=== PATIENT | male | born 1955 | race Caucasian/White ===

== ENCOUNTER 2017-05-02 09:40 | Inpatient (IN) | payer OTHER ==
[~2017-05-02] VITALS: Ht 185.4 cm; Wt 95.3 kg
--- NOTE | 2017-05-02 12:15 | NUR ---
Pre-Admission Assessment Pt is in stable condition, with stable VS and is A/O x4, calm and cooperative, able to make his needs known. Pt is able to consent to treatment and signs all appropriate papers. Pt provides curriculum writer with essential information and is cleared to be admitted to [facility].
[2017-05-02] MEDS ORDERED: ONDANSETRON 4 MG/2 ML VIAL IM PRN (12:30)
[2017-05-02] MEDS ORDERED: BUPRENORPHINE HCL 2 MG TAB.SUBL SL PRN (12:30)
[2017-05-02] MEDS ORDERED: IBUPROFEN 600 MG TABLET PO PRN (12:30)
[2017-05-02] MEDS ORDERED: MAGNESIUM HYDROXIDE 30 ML LIQUID UDC PO PRN (12:30)
[2017-05-02] MEDS ORDERED: LORAZEPAM 1 MG TABLET PO PRN ×2 (12:30)
[2017-05-02] MEDS ORDERED: LOPERAMIDE HCL 2 MG CAPSULE PO PRN (12:30)
[2017-05-02] MEDS ORDERED: ACETAMINOPHEN 325 MG TABLET PO PRN (12:30)
[2017-05-02] MEDS ORDERED: LORAZEPAM 2 MG/1 ML VIAL IM PRN (12:30)
[2017-05-02] MEDS ORDERED: diphenhydrAMINE 50 MG CAPSULE PO PRN (12:30)
[2017-05-02] MEDS ORDERED: MIRALAX 17 GM POWD.PACK PO PRN (12:30)
[2017-05-02] MEDS ORDERED: MAG HYDROX/AL HYDROX/SIMETH 30 ML LIQUID UDC PO PRN (12:30)
[2017-05-02] MEDS ORDERED: ALPR1TAB7 PO (12:33)
[2017-05-02] MEDS ORDERED: VALS160T2 PO (12:33)
[2017-05-02] MEDS ORDERED: ALBU18HF2 INH (12:33)
[2017-05-02 13:25] VITALS: BP 136/89
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
[2017-05-02 14:30] VITALS: BP 91/66
--- NOTE | 2017-05-02 15:11 | NUR ---
MD notification Facilities And Grounds Director notified Dr. Thompson of pt's reported use of 740mg of Aspirin daily. Facilities And Grounds Director also notified MD of pt's passive SI and an evaluation by Rosemarie, therapist for suicidal ideation, see her note and sports book writer's admission note. Will continue to monitor, support and encourage according to plan of care.
[2017-05-02 15:25] LABS: *AMPHETAMINE, URINE NEGATIVE (NEGATIVE); *BARBITURATE, URINE NEGATIVE (NEGATIVE); *CANNABINOID, URINE POSITIVE (NEGATIVE); *COCCAINE, URINE NEGATIVE (NEGATIVE); *OPIATE, URINE POSITIVE (NEGATIVE); *PHENCYCLIDINE SCREEN,URINE NEGATIVE (NEGATIVE)
[2017-05-02 16:25] LABS: BASOPHILS % (AUTO) 0.5 % (0.0-2.0); EOSINOPHILS # (AUTO) 0.2 K/uL (0.0-0.7); EOSINOPHILS % (AUTO) 2.4 % (0.0-7.0); HEMOGLOBIN 11.5 G/DL (14.0-18.0); LYMPHOCYTES # (AUTO) 1.5 K/UL (0.8-4.8); LYMPHOCYTES % (AUTO) 22.7 % (20.5-51.5); MEAN CORPUSCULAR HEMOGLOBIN 31.8 UUG (27.0-31.0); MEAN CORPUSCULAR HGB CONC 34 g/dL (32.0-37.0); MEAN CORPUSCULAR VOLUME 94.2 FL (82.0-92.0); MONOCYTES # (AUTO) 0.6 K/UL (0.1-1.30); NEUTROPHILS # (AUTO) 4.4 K/UL (1.8-8.9); NEUTROPHILS % (AUTO) 65.4 % (38.5-71.5); PLATELET COUNT (AUTO) 264 K/UL (150-450); RED BLOOD CELL COUNT(AUTO) 3.61 MIL/UL (4.7-6.1); WHITE BLOOD COUNT (AUTO) 6.7 K/UL (4.0-11.2)
[2017-05-02 16:30] VITALS: BP 91/66
[2017-05-02 16:39] LABS: ETHANOL < 3 MG/DL (0-0)
[2017-05-02 16:56] LABS: ALANINE AMINOTRANSFERASE 20 U/L (16-63); ALKALINE PHOSPHATASE 64 U/L (50-136); ASPARTATE AMINOTRANSFERASE 17 U/L (15-37); BILIRUBIN,TOTAL 0.4 mg/dL (0.2-1.0); CARBON DIOXIDE 26 mmol/L (21-32); CHLORIDE 100 mmol/L (98-107); CHOLESTEROL 173 mg/dL (<200); CREATININE 1.2 mg/dL (0.6-1.3); GLUCOSE 77 mg/dL (74-106); HDL CHOLESTEROL 41 mg/dL (40-60); MAGNESIUM 2.1 mg/dL (1.8-2.4); POTASSIUM 3.9 mmol/L (3.5-5.1); TOTAL PROTEIN, SERUM 6.1 g/dL (6.4-8.2); TRIGLYCERIDES 175 MG/DL (30-150); UREA NITROGEN, BLOOD 18 mg/dL (7-18)
[2017-05-02 17:05] LABS: THYROID STIMULATING HORMONE 0.435 mIU/mL (0.358-3.740)
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
[2017-05-02 20:00] VITALS: BP 90/59
[2017-05-02] MEDS: METHOCARBAMOL 750 MG TABLET PO PRN (20:04)
--- NOTE | 2017-05-02 20:04 | NUR ---
PRN ROBAXIN Pt complains of body aches 02/15. PRN Robaxin administered as ordered. Breathing even and unlabored. Safety measures in place. Will monitor effectiveness.
[2017-05-02] MEDS: VALSARTAN 160MG PO SCH (21:00)
[2017-05-02] MEDS ORDERED: LORAZEPAM 1 MG TABLET PO SCH (21:00)
--- NOTE | 2017-05-02 21:04 | NUR ---
PRN ROBAXIN REASSESSMENT PRN medication effective. Pt lying in bed with eyes closed noted to be asleep. No facial grimacing noted. Breathing even and unlabored. Safety measures in place. Will monitor.
--- NOTE | 2017-05-03 | NUR ---
VITALS REFUSED, COWS/CIWA DEFERRED 0000 vitals refused. Pt stated " I just want to get some sleep." COWS/CIWA deferred, pt lying in bed with eyes closed noted to be asleep. Respirations 16. Breathing even and unlabored. Safety measures in place. Will continue to monitor.
[2017-05-03] MEDS: CLONIDINE HCL 0.1 MG TABLET PO PRN (01:19)
--- NOTE | 2017-05-03 01:19 | NUR ---
PRN ATIVAN,CLONIDINE, BENADRYL Pt complains of anxiety, agitation, chills and inability to sleep. PRN Ativan, Clonidine, and Benadryl administered as ordered. COWS:8, CIWA:6. Breathing even and unlabored, safety measures in place. Will monitor effectiveness of medications.
--- NOTE | 2017-05-03 02:19 | NUR ---
PRN REASSESSMENT PRN Medications effective. Pt is lying in bed with eyes closed noted to be asleep. No facial grimacing. Breathing is even and unlabored, safety measures in place. Will continue to monitor.
--- NOTE | 2017-05-03 04:00 | NUR ---
VITALS REFUSED, COWS/CIWA DEFERRED 0400 vitals refused. COWS/CIWA deferred, pt lying in bed with eyes closed noted to be asleep. Respirations 16. Breathing even and unlabored. Safety measures in place. Will continue to monitor.
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
[2017-05-03 08:02] VITALS: BP 123/93
[2017-05-03] MEDS: ASPIRIN 81 MG TAB.CHEW PO SCH (08:10)
[2017-05-03] MEDS: LORAZEPAM 1 MG TABLET PO SCH ×4 (08:11→21:02)
[2017-05-03] MEDS: MULTIVITAMINS,THERAPEUTIC TABLET PO SCH (08:11)
[2017-05-03] MEDS: BUPRENORPHINE HCL 2 MG TAB.SUBL SL SCH ×4 (08:11→21:03)
[2017-05-03] MEDS: VALSARTAN 160MG PO SCH ×2 (08:13→21:03)
[2017-05-03] MEDS ORDERED: PATIENT MAY USE OWN MED- MD OK PO SCH (09:00)
[2017-05-03] MEDS ORDERED: TUBERCULIN,PURIF.PROT.DERIV. 5 TU/0.1 ML TEST ID ONE (09:00)
[2017-05-03 12:15] VITALS: BP 111/64
[2017-05-03] MEDS: DICYCLOMINE HCL 20 MG TABLET PO PRN ×2 (13:13→21:03)
[2017-05-03] MEDS: LOPERAMIDE HCL 2 MG CAPSULE PO PRN (13:13)
--- NOTE | 2017-05-03 13:13 | NUR ---
PRN Administration Pt complain of stomach cramps and multiple episodes of loose stools. Neurology Teacher administered Bentyl and Imodium for relief of symptoms. Will continue to monitor, support and encourage according to plan of care.
--- NOTE | 2017-05-03 14:15 | NUR ---
PRN Re-assessment Pt endorses relief from both cramps and diarrhea. Stating, " feeling much better, thanks." No episodes of diarrhea noted since PRN administered. Will continue to monitor, support and encourage according to plan of care.
[2017-05-03] MEDS ORDERED: KETOROLAC TROMETHAMINE 30 MG INJ IM PRN (14:30)
[2017-05-03 16:43] VITALS: BP 141/95
[2017-05-03] MEDS: buPROPion 100 MG TABLET PO SCH (16:48)
[2017-05-03] MEDS: FLUTICASONE PROP NASAL SPRAY 16 GM BOTTLE NS SCH (18:08)
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
[2017-05-03 20:00] VITALS: BP 127/67
[2017-05-03] MEDS: GABAPENTIN 300 MG CAPSULE PO SCH (21:03)
--- NOTE | 2017-05-03 21:03 | NUR ---
PRN BENTYL/SEROQUEL Pt complains of abdominal cramps and inability to sleep. PRN Bentyl and Seroquel administered as ordered. Breathing is even and unlabored, safety measures in place. Will monitor effectiveness.
[2017-05-03] MEDS: QUETIAPINE FUMARATE 25 MG TABLET PO PRN (21:04)
--- NOTE | 2017-05-03 22:03 | NUR ---
PRN BENTYL/SEROQUEL REASSESSMENT PRN medications effective. Pt is lying in bed with eyes closed noted to be asleep. No facial grimacing noted. Breathing is even and unlabored, safety measures in place. Will monitor.
--- NOTE | 2017-05-04 | NUR ---
VITALS REFUSED/COWS,CIWA DEFERRED 0000 vitals were refused by pt at beginning of shift. Pt stated "I not want to be bothered or woken up for vitals signs" Risks/benefits explained, pt still refused. COWS/CIWA deferred d/t pt lying in bed with eyes closed noted to be asleep. Respirations 16, breathing is even and unlabored. Safety measures in place. Will monitor.
[2017-05-04] MEDS ORDERED: FLUN25SP BNOSTRILS (00:45)
[2017-05-04] MEDS ORDERED: CARB15DR OP (00:45)
[2017-05-04] MEDS ORDERED: [UNRECOGNIZED DRUG - CODE] PO (00:45)
[2017-05-04] MEDS ORDERED: ALBU18HF2 IH (00:45)
--- NOTE | 2017-05-04 04:00 | NUR ---
VITALS REFUSED/COWS and CIWA DEFERRED 0400 vitals were refused by pt at beginning of shift. COWS/CIWA deferred d/t pt lying in bed with eyes closed noted to be asleep. Respirations 16, breathing is even and unlabored. Safety measures in place. Will continue to monitor.
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
--- NOTE | 2017-05-04 07:30 | NUR ---
START OF SHIFT Pt 61 y/o male admitted for opiate dependence. Pt received in room on bed watching television. Pt alert and oriented to name, place, and time. Perrla. Skin warm and dry to touch. Respirations even and unlabored. Pt appears slightly irritable and states he feels anxious. It was reported that pt slept for 8 hours last night. Bed on lowest position with side rails x2 up for safety. Call light within reach. No distress noted at this time.
[2017-05-04 08:16] VITALS: BP 114/76
[2017-05-04] MEDS: ASPIRIN 81 MG TAB.CHEW PO SCH (08:53)
[2017-05-04] MEDS: buPROPion 100 MG TABLET PO SCH ×2 (08:53→17:32)
[2017-05-04] MEDS: GABAPENTIN 300 MG CAPSULE PO SCH ×2 (08:53→20:41)
[2017-05-04] MEDS: LORAZEPAM 1 MG TABLET PO SCH ×3 (08:53→20:41)
[2017-05-04] MEDS: MULTIVITAMINS,THERAPEUTIC TABLET PO SCH (08:53)
[2017-05-04] MEDS: FLUTICASONE PROP NASAL SPRAY 16 GM BOTTLE NS SCH (08:54)
[2017-05-04] MEDS: BUPRENORPHINE HCL 2 MG TAB.SUBL SL SCH ×3 (08:54→20:40)
[2017-05-04] MEDS: VALSARTAN 160MG PO SCH ×2 (09:44→21:42)
[2017-05-04 12:00] VITALS: BP 121/94
[2017-05-04] MEDS: METHOCARBAMOL 750 MG TABLET PO PRN (14:49)
--- NOTE | 2017-05-04 14:49 | NUR ---
PRN Pt with with c/o body aches 06/18. robaxin po prn per MD order given and tolerated well.
--- NOTE | 2017-05-04 15:59 | NUR ---
FAM GARCIA Pt observed on bed in room with eyes closed resting, but easily arousable to name. no distress noted at this time.
[2017-05-04] MEDS: DICYCLOMINE HCL 20 MG TABLET PO PRN (17:32)
[2017-05-04] MEDS: CLONIDINE HCL 0.1 MG TABLET PO PRN (17:33)
--- NOTE | 2017-05-04 17:37 | NUR ---
PRN pt states had stomach cramps. Bentyl po prn per MD order given and tolerated well.
--- NOTE | 2017-05-04 17:37 | NUR ---
PRN Pt states feels anxious. Catapres po prn per MD order given and tolerated well.
[2017-05-04 17:39] VITALS: BP 145/89
--- NOTE | 2017-05-04 18:26 | NUR ---
END OF SHIFT Pt 61 y/o male admitted for opiate dependence. Pt alert and oriented to name, place, and time. Perrla. Skin warm and dry to touch. Respirations even and unlabored. Pt with periods of anxiety this morning. Pt with bilateral hand tremors noted slightly. Pt mostly isolative to room throughout the day, but did attend group activity. Pt was seen by MD. Pt medication compliant and tolerated well. Bed on lowest position with side rails x2 up for safety. Call light within reach. No distress noted at this time.
[2017-05-04 20:00] VITALS: BP 110/80
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
[2017-05-04] MEDS: BACLOFEN 10 MG TABLET PO SCH (20:41)
[2017-05-04] MEDS: QUETIAPINE FUMARATE 25 MG TABLET PO PRN (20:41)
--- NOTE | 2017-05-04 20:41 | NUR ---
PRN Administration Pt requested aid to help him sleep. Seroquel 50mg PRN administered. Safety measures in place. Will continue to monitor.
[2017-05-04] MEDS: CLONIDINE HCL 0.1 MG TABLET PO SCH (21:00)
--- NOTE | 2017-05-04 21:00 | NUR ---
Medication Refusal Pt refused schedule Valsartan 160mg and Clonidine 0.1mg. Risks/benefits explained - pt continues to refuse. BP 110/80, pulse 68, resp 16, SpO2 96% room air and temp 98.2, no reports of pain 0/10. Safety measures in place. Will continue to monitor.
--- NOTE | 2017-05-04 21:41 | NUR ---
PRN Reassessment Upon reassessment, pt is sleeping, no s/s of acute distress noted, respirations even/unlabored. Safety measures in place. Will continue to monitor.
--- NOTE | 2017-05-05 | NUR ---
Pt refused to be woken up for 0000 Vital Signs COWS/CIWA Deferred d/t pt sleeping to assess while pt is awake as ordered. Respirations even/unlabored, no s/s of acute distress noted, respirations even/unlabored. Safety measures in place, will continue to monitor.
--- NOTE | 2017-05-05 04:00 | NUR ---
Pt refused to be woken up for 0400 Vital Signs COWS/CIWA Deferred d/t pt sleeping to assess while pt is awake as ordered. Respirations even/unlabored, no s/s of acute distress noted, respirations even/unlabored. Safety measures in place, will continue to monitor.
[2017-05-05 06:06] LABS: HEPATITIS B SURFACE AG Negative (Negative)
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
--- NOTE | 2017-05-05 07:30 | NUR ---
START OF SHIFT Pt 61 y/o male admitted for opiate dependence. Pt received in room awake on bed watching television. Pt alert and oriented to name, place, and time. Perrla. Skin warm and dry to touch. Respirations even and unlabored. Bilateral hand tremors noted slightly. Pt stated he slept well last night. It was reported that pt slept for 8 hours last night. Bed on lowest position with side rails x2 up for safety. Call light within reach. No distress noted at this time.
[2017-05-05 08:20] VITALS: BP 130/97
[2017-05-05] MEDS: MULTIVITAMINS,THERAPEUTIC TABLET PO SCH (08:22)
[2017-05-05] MEDS: LORAZEPAM 1 MG TABLET PO SCH ×4 (08:23→20:48)
[2017-05-05] MEDS: CLONIDINE HCL 0.1 MG TABLET PO SCH ×2 (08:23→21:00)
[2017-05-05] MEDS: buPROPion 100 MG TABLET PO SCH ×2 (08:23→16:58)
[2017-05-05] MEDS: ASPIRIN 81 MG TAB.CHEW PO SCH (08:23)
[2017-05-05] MEDS: BACLOFEN 10 MG TABLET PO SCH ×3 (08:23→20:48)
[2017-05-05] MEDS: GABAPENTIN 300 MG CAPSULE PO SCH ×2 (08:24→14:09)
[2017-05-05] MEDS: FLUTICASONE PROP NASAL SPRAY 16 GM BOTTLE NS SCH (08:25)
[2017-05-05] MEDS: VENTOLIN HFA INH PRN ×2 (08:26→14:21)
--- NOTE | 2017-05-05 08:26 | NUR ---
PRN Pt with c/o wheezing. Albuterol inh prn per MD order given and tolerated well.
[2017-05-05] MEDS ORDERED: BUPRENORPHINE HCL 2 MG TAB.SUBL SL SCH (09:00)
--- NOTE | 2017-05-05 09:26 | NUR ---
FAM GARCIA Pt denies wheezing at this time.
[2017-05-05] MEDS: VALSARTAN 160MG PO SCH ×2 (09:43→20:49)
[2017-05-05 11:00] VITALS: BP 118/78
[2017-05-05 13:23] VITALS: BP 110/77
[2017-05-05] MEDS: BUPRENORPHINE HCL 2 MG TAB.SUBL SL SCH ×2 (14:09→20:52)
--- NOTE | 2017-05-05 14:22 | NUR ---
PRN Pt with c/o wheezing. Albuterol inh prn per MD order given and tolerated well.
--- NOTE | 2017-05-05 15:22 | NUR ---
PRN RADHA Pt denies any wheezing at this time.
[2017-05-05 17:35] VITALS: BP 104/68
[2017-05-05 20:00] VITALS: BP 118/79
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
[2017-05-05] MEDS ORDERED: GABAPENTIN 300 MG CAPSULE PO SCH (21:00)
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
--- NOTE | 2017-05-06 07:30 | NUR ---
START OF SHIFT Pt 61 y/o male admitted for opiate dependence. Pt received in room awake on bed watching television. Pt alert and oriented to name, place, and time. Perrla. Skin warm and slightly moist to touch. Respirations even and unlabored. Bilateral hand tremors noted slightly. It was reported that pt slept for 6 hours last night. Bed on lowest position with side rails x2 up for safety. Call light within reach. No distress noted at this time.
[2017-05-06] MEDS: VENTOLIN HFA INH PRN ×3 (08:50→21:10)
[2017-05-06] MEDS: FLUNISOLIDE NS PRN ×3 (08:50→21:10)
[2017-05-06] MEDS: buPROPion 100 MG TABLET PO SCH ×2 (08:51→17:09)
[2017-05-06] MEDS: BUPRENORPHINE HCL 2 MG TAB.SUBL SL SCH ×3 (08:52→20:36)
[2017-05-06] MEDS: ASPIRIN 81 MG TAB.CHEW PO SCH (08:52)
[2017-05-06] MEDS: LORAZEPAM 1 MG TABLET PO SCH ×3 (08:52→20:33)
[2017-05-06] MEDS: GABAPENTIN 300 MG CAPSULE PO SCH ×3 (08:52→20:31)
[2017-05-06] MEDS: BACLOFEN 10 MG TABLET PO SCH ×3 (08:52→20:33)
[2017-05-06] MEDS: MULTIVITAMINS,THERAPEUTIC TABLET PO SCH (08:52)
[2017-05-06] MEDS: VALSARTAN 160MG PO SCH ×2 (08:53→21:09)
[2017-05-06] MEDS: CLONIDINE HCL 0.1 MG TABLET PO SCH ×3 (08:53→20:34)
--- NOTE | 2017-05-06 08:59 | NUR ---
PRN Pt with c/o itchy eyes. Refresh eye gtts prn per MD orders given and tolerated.
--- NOTE | 2017-05-06 09:00 | NUR ---
PRN Pt with c/o wheezing. Albuterol inh prn per MD order given and tolerated well.
--- NOTE | 2017-05-06 09:08 | NUR ---
PRN Pt with c/o nasal congestion. flunisolide nasal spray prn per MD order given and tolerated well.
[2017-05-06 09:39] VITALS: BP 147/95
--- NOTE | 2017-05-06 09:59 | NUR ---
PRN RADHA Pt denies any itchy eyes at this time.
--- NOTE | 2017-05-06 10:00 | NUR ---
PRN RADHA Pt denies any wheezing at this time.
--- NOTE | 2017-05-06 10:08 | NUR ---
PRN EVAL Pt denies any nasal congestion at this time.
[2017-05-06] MEDS ORDERED: HYDROXYZINE PAMOATE 25 MG CAPSULE PO PRN (12:00)
[2017-05-06] MEDS: busPIRone 5 MG TABLET PO SCH ×2 (12:52→17:09)
[2017-05-06 13:57] VITALS: BP 108/75
[2017-05-06] MEDS: ONDANSETRON ODT 4 MG TAB.RAPDIS SL PRN (14:37)
[2017-05-06] MEDS: DICYCLOMINE HCL 20 MG TABLET PO PRN ×2 (14:37→20:34)
--- NOTE | 2017-05-06 14:38 | NUR ---
PRN Pt states feels nauseated. Zofran odt prn per MD order given and tolerated well.
--- NOTE | 2017-05-06 14:38 | NUR ---
PRN Pt with c/o wheezing. Albuterol inh prn per MD order given and tolerated well.
--- NOTE | 2017-05-06 14:38 | NUR ---
PRN Pt with c/o nasal congestion. flunisolide nasal spray prn per MD order given and tolerated well.
--- NOTE | 2017-05-06 15:38 | NUR ---
PRN RADHA Pt denies any wheezing at this time.
--- NOTE | 2017-05-06 15:38 | NUR ---
PRN EVAL Pt denies any nasal congestion at this time.
--- NOTE | 2017-05-06 15:48 | NUR ---
PRN EVAL Pt denies any nausea at this time.
[2017-05-06 16:00] VITALS: BP 118/74
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
[2017-05-06 20:00] VITALS: BP 125/85
[2017-05-06] MEDS: QUETIAPINE FUMARATE 25 MG TABLET PO PRN (20:32)
--- NOTE | 2017-05-06 20:32 | NUR ---
PRN SEROQUEL Pt reports having difficulty falling asleep and staying asleep. PRN Seroquel administered as ordered for sleep. Will monitor effectiveness.
--- NOTE | 2017-05-06 20:34 | NUR ---
PRN BENTYL/IMODIUM Pt complains of abdominal cramps and diarrhea x1. PRN Bentyl and Imodium administered as ordered. Breathing even and unlabored. Safety measures in place. Will monitor effectiveness.
[2017-05-06] MEDS: LOPERAMIDE HCL 2 MG CAPSULE PO PRN (20:35)
--- NOTE | 2017-05-06 21:10 | NUR ---
PRN EYEDROPS/INHALER/NASAL SPRAY Pt complains of dry eyes, wheezing/SOB, and nasal congestion. PRN eye drops, inhaler and nasal spray administered as ordered. Will continue to monitor.
--- NOTE | 2017-05-06 21:32 | NUR ---
PRN SEROQUEL REASSESSMENT PRN medication somewhat effective. Pt reports starting to feel drowsy and is ready to sleep. Breathing is even and unlabored, safety measures in place. Will continue to monitor.
--- NOTE | 2017-05-06 21:34 | NUR ---
PRN BENTYL/IMODIUM REASSESSMENT PRN medications effective. Pt reports decrease in stomach cramps and no reports of BM/diarrhea. Breathing even and unlabored, safety measures in place. Will monitor.
--- NOTE | 2017-05-06 22:10 | NUR ---
PRN EYEDROPS/INHALER/NASAL SPRAY REASSESSMENT PRN medications effective. Pt reports decrease in wheezing, congestion and dry eyes. Breathing even and unlabored, safety measures in place. Will monitor.
--- NOTE | 2017-05-07 | NUR ---
VITALS REFUSED/AMISHA FLORES DEFERRED 0000 vitals refused by pt at beginning of shift. Pt stated " I don't want to be bothered, I want to sleep!" AMISHA FLORES deferred d/t lying in bed with eyes closed noted to be asleep. Respirations 16, breathing even and unlabored. Safety measures in place. Will monitor.
--- NOTE | 2017-05-07 04:00 | NUR ---
VITALS REFUSED/AMISHA FLORES DEFERRED 0400 vitals refused by pt at beginning of shift. Pt stated " I don't want to be bothered, I want to sleep!" AMISHA FLORES deferred d/t lying in bed with eyes closed noted to be asleep. Respirations 16, breathing even and unlabored. Safety measures in place. Will continue to monitor.
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
[2017-05-07 08:00] VITALS: BP 101/68
[2017-05-07] MEDS: CLONIDINE HCL 0.1 MG TABLET PO SCH ×3 (09:00→21:00)
[2017-05-07] MEDS: BACLOFEN 10 MG TABLET PO SCH ×3 (09:17→20:47)
[2017-05-07] MEDS: busPIRone 5 MG TABLET PO SCH ×3 (09:17→17:00)
[2017-05-07] MEDS: BUPRENORPHINE HCL 2 MG TAB.SUBL SL SCH ×2 (09:17→20:47)
[2017-05-07] MEDS: GABAPENTIN 300 MG CAPSULE PO SCH ×3 (09:19→20:47)
[2017-05-07] MEDS: buPROPion 100 MG TABLET PO SCH ×2 (09:19→17:00)
[2017-05-07] MEDS: LORAZEPAM 1 MG TABLET PO SCH ×2 (09:19→20:47)
[2017-05-07] MEDS: MULTIVITAMINS,THERAPEUTIC TABLET PO SCH (09:19)
[2017-05-07] MEDS: ASPIRIN 81 MG TAB.CHEW PO SCH (09:19)
[2017-05-07] MEDS: VALSARTAN 160MG PO SCH ×2 (09:48→20:47)
[2017-05-07 12:00] VITALS: BP 122/73
--- NOTE | 2017-05-07 14:27 | NUR ---
Clinician encouraged client to attend afternoon group today. Client stated he is on a different medication and is very fatigued.
[2017-05-07 16:00] VITALS: BP 113/71
--- NOTE | 2017-05-07 19:11 | NUR ---
End Of Shift Report given. Pt is a 61 year old male patient admitted on 05/02/17 for opiates and benzo dependency. Pt is full code regular diet on fall and seizure precautions denies any food or drug allergies. VS monitored closely q 4 hours. Withdrawal symptoms were closely monitored. Initial COWS 6 CIWA 6. Patient encouraged adequate PO fluid intake as tolerated. Patient presented with tremors and anxiety during the day. Last COWS 4 and CIWA 4. Per patient, Subutex and Ativan have been helping him with his withdrawal symptoms. Pt ate all of his meals. No PRN medications given during the day. Patient encouraged to attend group therapies/sessions to learn new coping skills to recent relapse, patient denies SI/HI. Participated in group and therapy sessions. All needs met and attended
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
[2017-05-07 20:00] VITALS: BP 118/80
[2017-05-07] MEDS: ONDANSETRON ODT 4 MG TAB.RAPDIS SL PRN (20:20)
--- NOTE | 2017-05-07 20:21 | NUR ---
PRN Zofran Pt reports nausea without vomiting. PRN Zofran administered.
--- NOTE | 2017-05-07 20:51 | NUR ---
PRN Zofran reassessment PRN Zofran effective. Pt reports nausea is relieved.
[2017-05-07] MEDS: QUETIAPINE FUMARATE 25 MG TABLET PO PRN (21:35)
[2017-05-07] MEDS: VENTOLIN HFA INH PRN (21:37)
[2017-05-07] MEDS: FLUNISOLIDE NS PRN (21:37)
--- NOTE | 2017-05-07 21:38 | NUR ---
PRN Flunisolide, Ventolin inhaler, and Seroquel Pt reports nasal stuffiness, mild SOB, and inability to sleep. Lung sounds clear. PRN Flunisolide, Ventolin inhaler, and Seroquel administered.
--- NOTE | 2017-05-07 22:38 | NUR ---
PRN Flunisolide, Ventolin inhaler, and Seroquel PRN Flunisolide and Ventolin effective. Pt reports nasal stuffiness and SOB is relieved. Pt is still awake but verbalizes that feels tired and will try to sleep. Encouraged relaxation.
[2017-05-08] VITALS: BP 128/92
--- NOTE | 2017-05-08 04:00 | NUR ---
0400 Vitals refused/COWS and CIWA deferred Pt refused to be woken for 0400 Vitals. He is lying in bed resting with eyes closed. Respirations even and unlabored. COWS and CIWA ordered Q4HWA. Safety measures in place.
--- NOTE | 2017-05-08 04:00 | NUR ---
0400 Vitals refused/CIWA and COWS deferred Pt refused to be woken for 0400 vitals. He is lying in bed resting. Respirations even and unlabored. CIWA and COWS ordered Q4HWA. Safety measures in place.
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
--- NOTE | 2017-05-08 07:51 | NUR ---
BEGINNING OF SHIFT Patient endorsement report received from awake overnight monitor nurse, all pertinent information discussed. Patient is a 61 year old male admitted on 05/02/2017 with admitting Dx: Opiate/BZO dependence. Patient with ongoing 5 day Subutex taper and 5 day Ativan taper as ordered. Per awake overnight monitor patient received PRN Zofran, Flunisolide, Ventolin inhaler, and Seroquel, medications were effective. Last COWS 3 and CIWA 3. Patient slept for 7 hours. patient received in bed awake, alert and oriented x4, educated regarding plan of care for the day and medication regimen with good verbal understanding, will monitor closely. fall and seizure precautions observed at all times. all needs met and rendered, will continue to monitor.
[2017-05-08 09:00] VITALS: BP 124/82
[2017-05-08] MEDS ORDERED: BUPRENORPHINE HCL 2 MG TAB.SUBL SL SCH (09:00)
[2017-05-08] MEDS: buPROPion 100 MG TABLET PO SCH ×2 (09:12→16:47)
[2017-05-08] MEDS: busPIRone 5 MG TABLET PO SCH ×3 (09:12→16:47)
[2017-05-08] MEDS: BACLOFEN 10 MG TABLET PO SCH ×3 (09:12→21:45)
[2017-05-08] MEDS: ASPIRIN 81 MG TAB.CHEW PO SCH (09:12)
[2017-05-08] MEDS: GABAPENTIN 300 MG CAPSULE PO SCH ×3 (09:12→21:45)
[2017-05-08] MEDS: MULTIVITAMINS,THERAPEUTIC TABLET PO SCH (09:12)
[2017-05-08] MEDS: CLONIDINE HCL 0.1 MG TABLET PO SCH ×2 (09:13→21:45)
[2017-05-08] MEDS: VALSARTAN 160MG PO SCH ×2 (09:15→21:47)
[2017-05-08] MEDS: VENTOLIN HFA INH PRN ×2 (09:20→21:47)
[2017-05-08] MEDS: FLUNISOLIDE NS PRN ×2 (09:21→21:48)
[2017-05-08 12:28] VITALS: BP 124/82
[2017-05-08 13:31] LABS: *AMPHETAMINE, URINE NEGATIVE (NEGATIVE); *BARBITURATE, URINE NEGATIVE (NEGATIVE); *CANNABINOID, URINE NEGATIVE (NEGATIVE); *COCCAINE, URINE NEGATIVE (NEGATIVE); *OPIATE, URINE NEGATIVE (NEGATIVE); *PHENCYCLIDINE SCREEN,URINE NEGATIVE (NEGATIVE)
[2017-05-08] MEDS ORDERED: CLON0.1T14 PO (16:12)
[2017-05-08] MEDS ORDERED: BUSP5TAB3 PO (16:12)
[2017-05-08] MEDS ORDERED: DICY20TA28 PO (16:12)
[2017-05-08] MEDS ORDERED: QUET25TA PO (16:12)
[2017-05-08] MEDS ORDERED: HYDR-3895 PO (16:12)
[2017-05-08] MEDS ORDERED: GABA-534 PO (16:12)
[2017-05-08] MEDS ORDERED: BACL10TA PO (16:12)
[2017-05-08] MEDS ORDERED: BUPR100T13 PO (16:12)
[2017-05-08] MEDS ORDERED: DIPH50CA37 PO (16:12)
[2017-05-08] MEDS ORDERED: IBUP-1955 PO (16:12)
[2017-05-08 17:32] VITALS: BP 116/74
--- NOTE | 2017-05-08 19:08 | NUR ---
END OF SHIFT Patient alert and oriented x4, vital signs stable during shift. Patient compliant with therapeutic plan of care. Admitting Dx: opiate dependence, Patient completed 5 day Ativan taper and 5 day Subutex taper as ordered well tolerated, no ASE noted. 0900 assessment patient presented with: c/o chills, mild bone and joint aches, stuffy nasal, tremors that can be felt but not seen, mild anxiety, barely sweating, santy mild agitation with cow score of: 5 and ciwa score of: 4; 1300 assessment patient presented with: : c/o chills, mild bone and joint aches, stuffy nasal, tremors that can be felt but not seen, mild anxiety, barely sweating, santy mild agitation with cow score of: 5 and ciwa score of: 4; 1700 assessment patient presented with: c/o chills, mild bone and joint aches, stuffy nasal, tremors that can be felt but not seen, mild anxiety, barely sweating, santy mild agitation with cow score of: 5 and ciwa score of: 4. Detox medication effective at reducing withdrawal symptoms. During shift administered PRN: Flunisolide and Ventolin as ordered medications were effective. Patient is scheduled to be discharged tomorrow, noted self motivated towards sobriety. Patient encouraged to attend group/therapy sessions to learn new coping skills to prevent relapse, denies SI/HI. Patient compliant with plan of care during shift. Safety measures in place. call light kept with in reach. Patient endorsement report given to assembler insulator nurse, all pertinent information discussed. safety measures in place. will continue to monitor.
[2017-05-08 20:00] VITALS: BP 157/86
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
[2017-05-08] MEDS: QUETIAPINE FUMARATE 25 MG TABLET PO PRN (21:46)
--- NOTE | 2017-05-08 21:47 | NUR ---
PRN Seroquel Pt reports inability to sleep. PRN Seroquel administered.
--- NOTE | 2017-05-08 21:50 | NUR ---
PRN ventolin, refresh eye drops, and flunisolide nasal spray Pt reports mild SOB, dry eyes, and nasal stuffiness. Lung sounds clear. PRN Ventolin, refresh eye drops, and flunisolide nasal spray administered.
--- NOTE | 2017-05-08 22:20 | NUR ---
PRN ventolin, refresh eye drops, and flunisolide nasal spray reassessment PRN Ventolin, refresh eye drops, and flunisolide nasal spray effective. Pt reports SOB, nasal stuffiness, and dry eyes all resolved.
--- NOTE | 2017-05-08 22:48 | NUR ---
PRN Seroquel reassessment PRN Seroquel not yet effective. Pt is lying in bed resting. He states that he feels tired and will be going to sleep soon.
[2017-05-09] VITALS: BP 106/76
--- NOTE | 2017-05-09 04:00 | NUR ---
0400 Vitals refused/COWS and CIWA deferred Pt refused to be woken for 0400 vitals. He is lying in bed resting with eyes closed. Respirations even and unlabored. COWS and CIWA ordered Q4HWA. Safety measures in place.
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
[2017-05-09 08:00] VITALS: BP 87/54
[2017-05-09 09:00] VITALS: BP 87/50
[2017-05-09] MEDS: ASPIRIN 81 MG TAB.CHEW PO SCH ×2 (09:00→09:19)
[2017-05-09] MEDS: CLONIDINE HCL 0.1 MG TABLET PO SCH (09:00)
[2017-05-09] MEDS: BACLOFEN 10 MG TABLET PO SCH ×2 (09:00→09:19)
--- NOTE | 2017-05-09 09:15 | NUR ---
Medication administration Pt refused to take his aspirin and baclofen. Held clonidine d/t low BP of 87/50. Dr Thompson is aware and states that the pt is ok to discharge. Will continue to monitor pt until he discharges off the unit.
[2017-05-09] MEDS: MULTIVITAMINS,THERAPEUTIC TABLET PO SCH (09:19)
[2017-05-09] MEDS: GABAPENTIN 300 MG CAPSULE PO SCH (09:19)
[2017-05-09] MEDS: buPROPion 100 MG TABLET PO SCH (09:19)
[2017-05-09] MEDS: busPIRone 5 MG TABLET PO SCH (09:19)
[2017-05-09] MEDS: FLUNISOLIDE NS PRN (09:25)
[2017-05-09] MEDS: VENTOLIN HFA INH PRN (09:25)
--- NOTE | 2017-05-09 09:25 | NUR ---
PRN administration Pt states that he would like his inhaler and nasal spray, administered per MD orders. Will continue to monitor pt.
[2017-05-09] MEDS: VALSARTAN 160MG PO SCH (09:42)
--- NOTE | 2017-05-09 09:55 | NUR ---
Reassessment Pt states that his inhaler and nasal spray were effective in alleviating his symptoms.
--- NOTE | 2017-05-09 09:59 | NUR ---
Discharge note pt was admitted for opiate and benzo dependence. Pt had a COWS and CIWA of 4 and 3 d/t anxiety r/t discharging and fine tremors. Pt BP was low, Dr Thompson cleared pt for discharge. Pt states that his last BM was "a few days ago, but I am not worried about it and feel fine to discharge". Pt verbalized his understanding of the discharge instructions. Pt discharge instructions, medications, prescriptions and all belongings returned to pt. Pt ID band removed, pt ambulated off of unit with [employer], left facility via [facility] for [facility].
== END 2017-05-09 09:59 | disposition other institution (70) | DRG 895 ==
LOC: SRC 11:31
PROVIDERS: ADMIT Internal Medicine; ATTEND Internal Medicine
PROC: HZ31ZZZ Individual Counseling for Substance Abuse Treatment, Behavioral (ICD-10-PCS; principal; 2017-05-02)
PROC: HZ2ZZZZ Detoxification Services for Substance Abuse Treatment (ICD-10-PCS; principal; 2017-05-02)
DX: F11.23 Opioid dependence with withdrawal (principal); F33.1 Major depressive disorder, recurrent, moderate; F13.230 Sedative, hypnotic or anxiolytic dependence with withdrawal, uncomplicated; Z96.651 Presence of right artificial knee joint; Z82.49 Family history of ischemic heart disease and other diseases of the circulatory system; Z80.0 Family history of malignant neoplasm of digestive organs; Z81.1 Family history of alcohol abuse and dependence; F17.210 Nicotine dependence, cigarettes, uncomplicated; E78.5 Hyperlipidemia, unspecified; I15.9 Secondary hypertension, unspecified; I25.10 Atherosclerotic heart disease of native coronary artery without angina pectoris; Z79.899 Other long term (current) drug therapy; D53.9 Nutritional anemia, unspecified; F41.0 Panic disorder [episodic paroxysmal anxiety]; F12.90 Cannabis use, unspecified, uncomplicated
CPT/HCPCS: 36415; 80307; 83735; 84443; 85025; 86580; 86592; 86705; 86803; 87340; 87806; A4663; G0480; J3535; Q0162; Q0163